=== PATIENT | male | born 1945 | race Caucasian/White ===

== ENCOUNTER 2018-04-24 11:19 | Emergency (ER) | payer MEDICARE ==
[~2018-04-24] VITALS: Ht 170.2 cm; Wt 113.4 kg
[~2018-04-24 11:19] MED LIST: ATOR80 PO; CLOB.05TC TOP; CYAN500 PO; Elocon45 GM TP; FLUO10; FLUSAL1005; Garlic Oil1000 MG PO; LOSA25 PO; LOSA50; MECL25 PO; METF500C; METF500C PO; METO25; METO50ER PO; OMEG1CAP30 PO; PRED10; Prozac20 MG; Prozac20 MG PO; ROSU10TA; Saw Palmetto450 MG PO; TIOT18; TIOT18 INH; Ventolin/Prove6.7 GM INH; WARF6 PO
[2018-04-24] MEDS ORDERED: GABA300 PO (11:46)
[2018-04-24] MEDS ORDERED: ROPI1 PO (11:46)
[2018-04-24] MEDS ORDERED: ALPR.25 PO (11:46)
[2018-04-24] MEDS ORDERED: MOMENI (11:47)
[2018-04-24] MEDS ORDERED: ELIQUIS2.5 MG PO (11:48)
[2018-04-24] MEDS ORDERED: GLIP5 PO (11:48)
[2018-04-24 12:05] LABS: BASOPHILS ABSOLUTE AUTO 0.04 K/mm3 (0.00-0.23); BASOPHILS PERCENT AUTO 0 % (0-2); EOSINOPHILS ABSOLUTE AUTO 0.18 K/mm3 (0.00-0.68); EOSINOPHILS PERCENT AUTO 2 % (0-6); Hematocrit 38.6 % (37.0-53.0); Hemoglobin 12.1 g/dL (13.5-17.5); IMMATURE GRAN ABSOLUTE AUTO 0.08 K/mm3 (0.00-0.10); IMMATURE GRAN PERCENT AUTO 1 % (0-1); LYMPHOCYTES ABSOLUTE AUTO 2.02 K/mm3 (0.84-5.20); LYMPHOCYTES PERCENT AUTO 18 % (21-46); MONOCYTES ABSOLUTE AUTO 1.12 K/mm3 (0.16-1.47); MONOCYTES PERCENT AUTO 10 % (4-13); Mean Corpuscular HGB 31.3 pg (26.0-34.0); Mean Corpuscular HGB Conc 31.3 g/dL (31.5-36.5); Mean Corpuscular Volume 100 fL (80-100); NEUTROPHILS ABSOLUTE AUTO 7.98 K/mm3 (1.96-9.15); NEUTROPHILS PERCENT AUTO 70 % (41-73); Platelet Count 279 K/mm3 (150-400); RDW Coefficient Variation 14.9 % (11.7-14.2); RDW Standard Deviation 54.6 fL (35.1-46.3); Red Blood Cell Count 3.86 M/mm3 (4.30-5.90); White Blood Cell Count 11.42 K/mm3 (4.00-11.30)
[2018-04-24 12:25] LABS: International Normalized Ratio 1.02; Prothrombin Time Results 10.8 Sec (9.7-11.5)
[2018-04-24 12:33] LABS: Alanine Aminotransfer (ALT/SGP 21 U/L (12-78); Albumin, Blood 3.2 g/dL (3.4-5.0); Albumin/Globulin Ratio 0.8 (0.8-1.8); Alk Phos 88 U/L (50-136); Anion Gap 7 mmol/L (6-16); Aspartate Aminotrans (AST/SGOT 14 U/L (12-37); Bilirubin, Total 0.4 mg/dL (0.1-1.0); Blood Urea Nitrogen 10 mg/dL (8-24); Bun/Creatinine Ratio 14.9 (12.0-20.0); CO2, Blood 27 mmol/L (21-32); Calcium, Blood 8.1 mg/dL (8.5-10.1); Chloride, Blood 107 mmol/L (98-108); Creatinine, Blood 0.67 mg/dL (0.60-1.20); Globulin, Blood 3.9 g/dL (2.2-4.0); Glomerular Filtration Rate >60 (60-); Glucose, Blood 157 mg/dL (70-99); Potassium, Blood 3.8 mmol/L (3.5-5.5); Sodium, Blood 141 mmol/L (136-145); Total Protein, Blood 7.1 g/dL (6.4-8.2); Troponin I <0.015 ng/mL (0.000-0.040)
== END 2018-04-24 14:14 | disposition home or self-care (01) ==
LOC: ER 11:19
PROVIDERS: Emergency Medicine
DX: S09.90XA Unspecified injury of head, initial encounter (principal); S39.012A Strain of muscle, fascia and tendon of lower back, initial encounter; I48.91 Unspecified atrial fibrillation; J44.9 Chronic obstructive pulmonary disease, unspecified; E11.9 Type 2 diabetes mellitus without complications; Z88.8 Allergy status to other drugs, medicaments and biological substances; Z79.899 Other long term (current) drug therapy; Z79.01 Long term (current) use of anticoagulants; Z79.84 Long term (current) use of oral hypoglycemic drugs; Z99.81 Dependence on supplemental oxygen; W18.30XA Fall on same level, unspecified, initial encounter; Y92.009 Unspecified place in unspecified non-institutional (private) residence as the place of occurrence of the external cause
CPT/HCPCS: 70450; 71045; 80053; 83880; 84484; 85025; 85610; 93005; 93010; 99285-25

== ENCOUNTER 2018-09-21 00:35 | Emergency (ER) | payer MEDICARE ==
[~2018-09-21] VITALS: Ht 170.2 cm; Wt 109.8 kg
[~2018-09-21 00:35] MED LIST changes: +ALPR.25 PO; +ELIQUIS2.5 MG PO; +GABA300 PO; +GLIP5 PO; +MOMENI; +ROPI1 PO
[2018-09-21] MEDS ORDERED: FURO20 (01:11)
[2018-09-21] MEDS ORDERED: TAMS.4ER (01:12)
[2018-09-21 01:27] LABS: BASOPHILS ABSOLUTE AUTO 0.03 K/mm3 (0.00-0.23); BASOPHILS PERCENT AUTO 0 % (0-2); EOSINOPHILS PERCENT AUTO 1 % (0-6); Hemoglobin 12.4 g/dL (13.5-17.5); IMMATURE GRAN ABSOLUTE AUTO 0.18 K/mm3 (0.00-0.10); IMMATURE GRAN PERCENT AUTO 1 % (0-1); LYMPHOCYTES ABSOLUTE AUTO 1.78 K/mm3 (0.84-5.20); LYMPHOCYTES PERCENT AUTO 11 % (21-46); MONOCYTES PERCENT AUTO 9 % (4-13); Mean Corpuscular HGB Conc 32.6 g/dL (31.5-36.5); Mean Corpuscular Volume 98 fL (80-100); Mean Platelet Volume 8.8 fL (9.1-12.4); NEUTROPHILS ABSOLUTE AUTO 13.37 K/mm3 (1.96-9.15); NEUTROPHILS PERCENT AUTO 79 % (41-73); Platelet Count 300 K/mm3 (150-400); RDW Coefficient Variation 15.1 % (11.7-14.2); RDW Standard Deviation 54.6 fL (35.1-46.3); Red Blood Cell Count 3.88 M/mm3 (4.30-5.90); White Blood Cell Count 16.96 K/mm3 (4.00-11.30)
[2018-09-21 01:48] LABS: Alanine Aminotransfer (ALT/SGP 37 U/L (12-78); Albumin, Blood 3.3 g/dL (3.4-5.0); Albumin/Globulin Ratio 0.8 (0.8-1.8); Alk Phos 86 U/L (50-136); Anion Gap 10 mmol/L (6-16); Aspartate Aminotrans (AST/SGOT 27 U/L (12-37); Bilirubin, Total 0.5 mg/dL (0.1-1.0); Blood Urea Nitrogen 12 mg/dL (8-24); Bun/Creatinine Ratio 12.4 (12.0-20.0); CO2, Blood 24 mmol/L (21-32); Calcium, Blood 8.4 mg/dL (8.5-10.1); Chloride, Blood 101 mmol/L (98-108); Creatinine, Blood 0.97 mg/dL (0.60-1.20); Globulin, Blood 3.9 g/dL (2.2-4.0); Glomerular Filtration Rate >60 (60-); Glucose, Blood 112 mg/dL (70-99); Potassium, Blood 4.2 mmol/L (3.5-5.5); Sodium, Blood 135 mmol/L (136-145); Total Protein, Blood 7.2 g/dL (6.4-8.2); Troponin I <0.015 ng/mL (0.000-0.040)
[2018-09-21 03:40] LABS: Source, Urine Clean Catch
[2018-09-21 03:45] LABS: Bilirubin, Urine Neg (Neg); Blood, Urine Neg (Neg); Glucose Qualitative, Urine Neg (Neg); Ketones, Urine Neg (Neg); Leukocyte Esterase, Urine 1+ (Neg); Nitrite, Urine Neg (Neg); Protein, Urine 2+ (Neg); Urobilinogen, Urine NORM (Normal)
[2018-09-21 04:02] LABS: Appearance, Urine Clear (Clear); Color, Urine Yellow (P-Yellow)
[2018-09-21 04:03] LABS: Bacteria Not Seen /hpf; Calcium Oxalate Crystals Mod /hpf; Red Blood Cells, Urine Not Seen /hpf (0-2); Squamous Epithelial Cells Not Seen /hpf (Few); White Blood Cells, Urine 0-2 /hpf (0-5)
[2018-09-21 04:04] LABS: Hyaline Casts 0-2 /lpf (0-2)
== END 2018-09-21 05:59 | disposition home or self-care (01) ==
LOC: ER 00:35
PROVIDERS: Emergency Medicine
DX: S20.211A Contusion of right front wall of thorax, initial encounter (principal); W19.XXXA Unspecified fall, initial encounter; R53.1 Weakness; E11.9 Type 2 diabetes mellitus without complications; J44.9 Chronic obstructive pulmonary disease, unspecified; Z88.8 Allergy status to other drugs, medicaments and biological substances; Z79.899 Other long term (current) drug therapy; Z79.84 Long term (current) use of oral hypoglycemic drugs
CPT/HCPCS: 70450; 71101; 72125; 80053; 81001; 83880; 84484; 85025; 93005; 93010; 99285-25; A9270

== ENCOUNTER 2019-04-14 12:15 | Day surgery (SDC) | payer MEDICARE ==
[~2019-04-14] VITALS: Ht 170.2 cm; Wt 108.7 kg
[~2019-04-14 12:15] MED LIST changes: +FURO20; +LANOXIN125 MCG; +METO100ER; +NITR.4SL; +STIOLTO RESPIMAT4 GM; +TAMS.4ER
--- NOTE | 2019-04-14 14:24 | NUR ---
04/14/19 1424 Nancy Martínez S IV ASSESSMENT WAS CHARTED IN OR PART INSTEAD ON IN SD.
== END 2019-04-14 14:15 | disposition home or self-care (01) ==
LOC: ORSCSDS 12:15
PROVIDERS: Internal Medicine Gastroenterology
PROC: 0DBH8ZX Excision of Cecum, Via Natural or Artificial Opening Endoscopic, Diagnostic (ICD-10-PCS; principal; 2019-04-14 14:15)
PROC: 0DBP8ZX Excision of Rectum, Via Natural or Artificial Opening Endoscopic, Diagnostic (ICD-10-PCS; principal; 2019-04-14 14:15)
DX: Z12.11 Encounter for screening for malignant neoplasm of colon (principal); Z86.010 Personal history of colon polyps; D12.0 Benign neoplasm of cecum; K62.1 Rectal polyp; K57.30 Diverticulosis of large intestine without perforation or abscess without bleeding; K64.8 Other hemorrhoids; E11.9 Type 2 diabetes mellitus without complications; I10 Essential (primary) hypertension; J44.9 Chronic obstructive pulmonary disease, unspecified; G47.33 Obstructive sleep apnea (adult) (pediatric); I48.91 Unspecified atrial fibrillation; Z79.899 Other long term (current) drug therapy; E66.01 Morbid (severe) obesity due to excess calories; Z68.37 Body mass index [BMI] 37.0-37.9, adult
CPT/HCPCS: 82947; 88305; J2405; J2704; J7120

== ENCOUNTER 2022-04-05 04:32 | Inpatient (IN) | payer MEDICARE ==
[~2022-04-05] VITALS: Ht 177.8 cm; Wt 108.6 kg
[~2022-04-05 04:32] MED LIST changes: -LANOXIN125 MCG; +LANOXIN125 MCG PO; -METO100ER; +METO100ER PO
[2022-04-05 04:46] LABS: BASOPHILS ABSOLUTE AUTO 0.08 K/mm3 (0.00-0.23); BASOPHILS PERCENT AUTO 1 % (0-2); EOSINOPHILS ABSOLUTE AUTO 0.33 K/mm3 (0.00-0.68); EOSINOPHILS PERCENT AUTO 2 % (0-6); Hematocrit 39.1 % (37.0-53.0); Hemoglobin 12.7 g/dL (13.5-17.5); IMMATURE GRAN ABSOLUTE AUTO 0.79 K/mm3 (0.00-0.10); IMMATURE GRAN PERCENT AUTO 5 % (0-1); LYMPHOCYTES ABSOLUTE AUTO 3.46 K/mm3 (0.84-5.20); LYMPHOCYTES PERCENT AUTO 21 % (21-46); MONOCYTES ABSOLUTE AUTO 1.88 K/mm3 (0.16-1.47); MONOCYTES PERCENT AUTO 12 % (4-13); Mean Corpuscular HGB 31.4 pg (26.0-34.0); Mean Corpuscular HGB Conc 32.5 g/dL (31.5-36.5); Mean Corpuscular Volume 97 fL (80-100); Mean Platelet Volume 9.2 fL (9.1-12.4); NEUTROPHILS ABSOLUTE AUTO 9.66 K/mm3 (1.96-9.15); NEUTROPHILS PERCENT AUTO 60 % (41-73); Platelet Count 328 K/mm3 (150-400); RDW Coefficient Variation 16.1 % (11.7-14.2); RDW Standard Deviation 57.8 fL (35.1-46.3); Red Blood Cell Count 4.04 M/mm3 (4.30-5.90)
[2022-04-05 04:51] LABS: PCO2 Arterial 56.1 mmHg (35-45); PO2 Arterial 266 mmHg (80-100)
[2022-04-05 04:52] LABS: pH Blood Arterial 7.27 (7.35-7.45)
[2022-04-05 05:24] LABS: Anion Gap 7 mmol/L (6-16); Blood Urea Nitrogen 21 mg/dL (8-24); Bun/Creatinine Ratio 21.4 (12.0-20.0); CO2, Blood 29 mmol/L (21-32); Calcium, Blood 8.9 mg/dL (8.5-10.1); Chloride, Blood 104 mmol/L (98-108); Creatinine, Blood 0.98 mg/dL (0.60-1.20); Digoxin (Lanoxin) 0.77 ug/mL (0.80-2.00); Glomerular Filtration Rate 79 (60-); Glucose, Blood 175 mg/dL (70-99); Potassium, Blood 4.3 mmol/L (3.5-5.5); Sodium, Blood 140 mmol/L (136-145)
[2022-04-05] MEDS ORDERED: XARELTO20 MG PO (06:34)
[2022-04-05] MEDS ORDERED: ALPR.5 PO (06:34)
[2022-04-05] MEDS ORDERED: DESV50 PO (06:35)
[2022-04-05] MEDS ORDERED: TAMS.4ER PO (06:35)
[2022-04-05] MEDS ORDERED: FURO20 PO (06:36)
[2022-04-05] MEDS ORDERED: GLIP10 PO (06:37)
[2022-04-05 09:51] LABS: Influenza A, PCR NEGATIVE (NEGATIVE); Influenza B, PCR NEGATIVE (NEGATIVE); Resp Syncytial Virus, PCR NEGATIVE (NEGATIVE); SARS-Cov-2 (COVID-19) PCR, MMC NEGATIVE (NEGATIVE)
[2022-04-05 09:56] LABS: CHOL/HDL RATIO 2.4; Cholesterol 108 mg/dL (50-200); HDL Cholesterol 45 mg/dL (>39); LDL/HDL RATIO 0.8; Low Density Lipoprotein Chol 35 mg/dL (0-110); Triglycerides 141 mg/dL (30-160); Very Low Density Lipoprot Chol 28 mg/dL (6-32)
[2022-04-05 10:06] LABS: PCO2 Arterial 48.2 mmHg (35-45); PO2 Arterial 76.3 mmHg (80-100); pH Blood Arterial 7.34 (7.35-7.45)
[2022-04-05 10:46] LABS: Source, Urine Foley catheter
[2022-04-05 11:26] LABS: Appearance, Urine Hazy (Clear); Bilirubin, Urine Neg (Neg); Blood, Urine 5+ (Neg); Color, Urine Yellow (P-Yellow); Glucose Qualitative, Urine Neg (Neg); Ketones, Urine Neg (Neg); Leukocyte Esterase, Urine Neg (Neg); Nitrite, Urine Neg (Neg); Protein, Urine 3+ (Neg); Urobilinogen, Urine NORM (Normal)
[2022-04-05 12:23] LABS: Bacteria Few /hpf; Granular Casts 0-2 /lpf (0); Red Blood Cells, Urine 25-50 /hpf (0-2); Squamous Epithelial Cells Mod /hpf (Few)
--- NOTE | 2022-04-05 15:20 | NUR ---
Echocardiogram performed.
[2022-04-06 05:47] LABS: BASOPHILS ABSOLUTE AUTO 0.04 K/mm3 (0.00-0.23); BASOPHILS PERCENT AUTO 0 % (0-2); EOSINOPHILS PERCENT AUTO 0 % (0-6); Hematocrit 34.4 % (37.0-53.0); Hemoglobin 11.5 g/dL (13.5-17.5); IMMATURE GRAN ABSOLUTE AUTO 0.17 K/mm3 (0.00-0.10); IMMATURE GRAN PERCENT AUTO 1 % (0-1); LYMPHOCYTES ABSOLUTE AUTO 0.78 K/mm3 (0.84-5.20); LYMPHOCYTES PERCENT AUTO 3 % (21-46); MONOCYTES ABSOLUTE AUTO 1.75 K/mm3 (0.16-1.47); MONOCYTES PERCENT AUTO 8 % (4-13); Mean Corpuscular HGB 31.3 pg (26.0-34.0); Mean Corpuscular HGB Conc 33.4 g/dL (31.5-36.5); Mean Corpuscular Volume 94 fL (80-100); Mean Platelet Volume 9.4 fL (9.1-12.4); NEUTROPHILS ABSOLUTE AUTO 20.57 K/mm3 (1.96-9.15); NEUTROPHILS PERCENT AUTO 88 % (41-73); Platelet Count 279 K/mm3 (150-400); RDW Standard Deviation 54.7 fL (35.1-46.3); Red Blood Cell Count 3.67 M/mm3 (4.30-5.90); White Blood Cell Count 23.31 K/mm3 (4.00-11.30)
[2022-04-06 06:08] LABS: Albumin, Blood 3.2 g/dL (3.4-5.0); Albumin/Globulin Ratio 0.7 (0.8-1.8); Bun/Creatinine Ratio 38.7 (12.0-20.0); Calcium, Blood 9.1 mg/dL (8.5-10.1); Creatinine, Blood 0.91 mg/dL (0.60-1.20); Globulin, Blood 4.5 g/dL (2.2-4.0); Potassium, Blood 4.5 mmol/L (3.5-5.5); Total Protein, Blood 7.7 g/dL (6.4-8.2)
--- NOTE | 2022-04-06 06:38 | NUR ---
Assumed care of the pt at 1900. He is alert and oriented x3, but with some mumbling speech. Pt reports right rib pain making it hard to breathe. Pt has been satting >90% on the Airvo at 60L and 40% but is very tachypneic with increased work of breathing related to pain. He was medicated multiple times for the right rib pain but has occasional moaning and twitching while sleeping. The pt continues to complain of thirst despite assistance with swabs. His blood pressure was slightly elevated this morning but improved after pain medication. He has been refusing most position changes related to pain. He has been Afib on the tele in the 110s and 120s, jumping up to the 140s with pain.
--- NOTE | 2022-04-06 10:12 | NUR ---
AM NOTE: PATIENT ALERT TO SELF, AT BEDSIDE, AND THAT HE IS AT HOSPITAL. SPEECH MUMBLED. MOANING AND GROANING. COMPLAINS OF PAIN IN "BACK". MEDICATED THIS WITH GOOD RELIEF. AT BEDSIDE AND UPDATED ON STATUS. UNABLE TO ANSWER MOST ASSESSMENT QUESTIONS. VERY DROWSY AND INTERMIT CONFUSION. LUNGS SOUNDING COARSE THROUGHOUT. ON HIGH FLOW NASAL CANNULA AT 60L AND 40% FIO2 SATING 90-94%. RR 20-24. MOUTH BREATHING. COUGH MOIST/HARSH. SPUTUM VERY THICK AND GALEAS/BROWN IN COLOR. SUCTION SET UP AT BEDSIDE AND ORAL CARE COMPLETED THIS AM. PATIENT MISSING MOST TEETH. NO SORES NOTED IN MOUTH. TELE SHOWING AFIB WITH HR 110-130'S. BP STABLE. PPP. TRACE EDEMA TO BLE. DENIES CHEST PAIN/PRESSURE. PO MEDS GIVEN THIS AM. SEE CHARTED VITALS FOR HR TREND. DENIES ABDOMINAL PAIN/NAUSEA. SPEECH THERAPY IN TO ASSESS PATIENT THIS AM. PUREE DIET IN PLACE WITH MEDS CRUSHED IN APPLESAUCE. WILL CONTINUE TO ASSESS BASED ON PATIENT MENTATION. AARON CATH IN PLACE DRAINING DARK YELLOW URINE. CATH CARE COMPLETED THIS AM. SMALL STOOL SMEAR UPON 8AM TURN. BOWEL TONES PRESENT. SKIN OVERALL FRAGILE. SKIN FOLDS RED AND IRRITATED, CLEANED AND CREAM APPLIED. COCCYX RED WITH SMALL AMOUNT OF SKIN BREAKDOWN, MEPILEX IN PLACE. SMALL SKIN TEAR TO LEFT POSTERIOR ELBOW, CLEANED AND DRESSING IN PLACE. BRUISING TO RIGHT POSTERIOR BACK/FLANK. CALL LIGHT IN REACH, ALTHOUGH PATIENT NOT USING. AT BEDSIDE. BED ALARM IN PLACE.
[2022-04-06] MEDS ORDERED: POTA10T PO (12:35)
[2022-04-06] MEDS ORDERED: STIOLTO RESPIMAT4 G1 INH (12:36)
[2022-04-06] MEDS ORDERED: ALBU90OI INH (12:37)
[2022-04-06] MEDS ORDERED: ACET325 PO (12:38)
--- NOTE | 2022-04-06 13:08 | NUR ---
PATIENT FEELING WARM. ORAL TEMP READING 98.5. PROCAL RESULT IN AT 0.20, CALL PLACED TO DR. ANGELA. UPDATED ON PROCAL. NO NEW ORDERS FOR THIS RN. STILL TRYING TO OBTAIN SPUTUM CULTURE, PATIENT NOT FOLLOWING COMMANDS WELL TO COUGH AT THIS TIME. WILL CONTINUE TO MONITOR AND UPDATE DR. ANGELA NEEDED. REMAINS AT BEDSIDE, UPDATED ON PLAN.
--- NOTE | 2022-04-06 18:04 | NUR ---
SHIFT SUMMARY: PATIENT NEURO REMAINS UNCHANGED. INTERMIT EPISODES OF BEING MORE CONFUSED AND MORE ALERT. HARD TO UNDERSTAND WITH MUMBLING. MEDICATED FOR RIGHT RIB/PAIN PAIN THROUGHOUT SHIFT. BP REMAINS STABLE. TELE SHOWING AFIB WITH HR 90-110'S. DENIES CHEST PAIN/CHEST PRESSURE. SEE SPEECH ORDERS. DUE TO PATIENT MENTATION UNABLE TO EAT ANY MEALS TODAY. TAKING SOME BITES OF APPLESAUCE AND DRINKING WATER WHEN ALERT. ORAL CARE Q4. AARON CATH DRAINING DARK YELLOW URINE WITH SLIGHT BLOOD TINGED. TOTAL OUTPUT 525ML THIS SHIFT. FAMILY AT BEDSIDE. Q6 BLOOD SUGARS WITH INSULIN COVERAGE. Q2 TURNING ALTHOUGH VERY DIFFICULT TO GET PATIENT COMFORTABLE. REMAINS ON AIRVO AT 60L AND 40% FIO2 SATING 90-94%. UNABLE TO OBTAIN SPUTUM SAMPLE THIS SHIFT, ORDERS REMAIN IN PLACE. BED ALARM ON.
[2022-04-06 23:48] LABS: Base Excess Venous 3.4 mmol/L; PCO2 Venous 42.5 mmHg (38-42); pH Blood Venous 7.42 (7.34-7.37)
[2022-04-07 02:10] LABS: Source, Urine Foley catheter
[2022-04-07 02:13] LABS: Bilirubin, Urine Neg (Neg); Blood, Urine 4+ (Neg); Glucose Qualitative, Urine Neg (Neg); Ketones, Urine Neg (Neg); Leukocyte Esterase, Urine 3+ (Neg); Nitrite, Urine Pos (Neg); Protein, Urine 3+ (Neg); Urobilinogen, Urine NORM (Normal)
[2022-04-07 02:16] LABS: BASOPHILS ABSOLUTE AUTO 0.05 K/mm3 (0.00-0.23); BASOPHILS PERCENT AUTO 0 % (0-2); EOSINOPHILS PERCENT AUTO 0 % (0-6); Hematocrit 33.2 % (37.0-53.0); Hemoglobin 10.8 g/dL (13.5-17.5); IMMATURE GRAN ABSOLUTE AUTO 0.26 K/mm3 (0.00-0.10); IMMATURE GRAN PERCENT AUTO 1 % (0-1); LYMPHOCYTES ABSOLUTE AUTO 0.53 K/mm3 (0.84-5.20); LYMPHOCYTES PERCENT AUTO 2 % (21-46); MONOCYTES ABSOLUTE AUTO 2.06 K/mm3 (0.16-1.47); MONOCYTES PERCENT AUTO 8 % (4-13); Mean Corpuscular HGB 31.1 pg (26.0-34.0); Mean Corpuscular HGB Conc 32.5 g/dL (31.5-36.5); Mean Corpuscular Volume 96 fL (80-100); Mean Platelet Volume 9.7 fL (9.1-12.4); NEUTROPHILS ABSOLUTE AUTO 23.84 K/mm3 (1.96-9.15); NEUTROPHILS PERCENT AUTO 89 % (41-73); NRBC ABSOLUTE 0.02 K/mm3 (0.00-0.02); NRBC Auto 0.1 /100 WBC (0.0-0.2); Platelet Count 266 K/mm3 (150-400); RDW Coefficient Variation 16.2 % (11.7-14.2); RDW Standard Deviation 56.9 fL (35.1-46.3); Red Blood Cell Count 3.47 M/mm3 (4.30-5.90); White Blood Cell Count 26.74 K/mm3 (4.00-11.30)
[2022-04-07 02:19] LABS: Appearance, Urine Cloudy (Clear); Color, Urine Amber (P-Yellow)
[2022-04-07 02:21] LABS: Bacteria Mod /hpf; Red Blood Cells, Urine TNTC /hpf (0-2); Squamous Epithelial Cells Rare /hpf (Few)
[2022-04-07 02:30] LABS: Albumin, Blood 3.2 g/dL (3.4-5.0); Anion Gap 8 mmol/L (6-16); Blood Urea Nitrogen 46 mg/dL (8-24); Bun/Creatinine Ratio 45.1 (12.0-20.0); CO2, Blood 26 mmol/L (21-32); Calcium, Blood 9.3 mg/dL (8.5-10.1); Chloride, Blood 105 mmol/L (98-108); Creatinine, Blood 1.02 mg/dL (0.60-1.20); Glomerular Filtration Rate 76 (60-); Glucose, Blood 205 mg/dL (70-99); Phosphorus, Blood 4.1 mg/dL (2.5-4.9); Potassium, Blood 4.7 mmol/L (3.5-5.5); Sodium, Blood 139 mmol/L (136-145)
--- NOTE | 2022-04-07 05:45 | NUR ---
ARRIVAL TO ICU PT BROUGHT TO ICU AT THIS TIME. PT IS ABLE TO STATE NAME AND . OTHERWISE HE DOES NOT FOLLOW ANY COMMANDS, RESTLESS AND CONTINUOUSLY MOVING AROUND BED, PUSHING STAFF AWAY. BILATERAL SOFT WRIST RESTRAINTS IN PLACE. PT PLACED ON BIPAP 10/6 FIO2 40%. PRECEDEX STARTED AND TITRATED TO 0.5MCG/KG/HR. PT REMAINS RESTLESS AND MOANING/CALLING OUT. PT REORIENTED, PT C/O BACK AND NECK PAIN, CONTINUES TO BE RESTLESS. HR 130S-140S. BP STABLE WITH MAP >65. EKG DONE AND SHOWS SINUS TACH WITH 1ST DEGREE AV BLOCK AND LBBB. AARON PATENT AND DRAINING DARK YELLOW URINE TO GRAVITY. LARGE BRUISE ON R HIP. BED IN LOW POSITION. WILL REPORT TO ONCOMING RN.
--- NOTE | 2022-04-07 06:15 | NUR ---
ZONING ENGINEER SUMMARY ASSUMED CARE OF THE PT AT 1900. HE IS ALERT AND ORIENTED TO SELF AND SURROUNDINGS. PT CONTINUED TO HAVE CONFUSION AND BECAME AGITATED WITH STAFF AND HIS NPO STATUS HE CONTINUES TO REQUEST WATER. PT HAD BEEN ATTEMPTING TO GET OUT OF BED WITHOUT ASSISTANCE AND CONTINUED TO YELL INTO THE HALLWAY FOR THE NURSE BUT REPORTS FEELING UNABLE TO BREATHE. SATURATION REMAINED >90% WHEN ON THE AIRVO AT 60L AND 35% - HE BEGAN TO GET AGITATED AND PULLED OFF THE AIRVO MASK. ATTEMPTED TO CALM PT WITH 1MG IV ATIVAN BUT PT CONTINUED TO MOAN AND TWITCH. HE CONTINUES TO BE REDIRECTABLE BUT ONLY FOR A SHORT PERIOD BEFORE ATTEMPTING TO PULL OFF THE AIRVO MASK OR GET OUT OF BED. PT WITH DESATURATIONS INTO THE MID 70S WHEN NOT ON THE MASK. HE COULD NOT TOLERATE THE BIPAP MASK AND CONTINUED TO REMOVE IT. SPOKE WITH DR JOSEPH WHO ORDERED LABWORK AND A REPEAT CHEST XRAY WHICH SHOWS POSSIBLE RLL PNA VS ATELECTASIS AND HIS URINALYSIS WAS POSITIVE FOR LEUKOCYTES, NITRITE, AND BLOOD. PT SUGAR REMAINS IN THE 200S DUE TO STEROIDS AND GIVEN 2 U SHORT ACTING Q6H. ATTEMPTED RESTRAINTS ON THE PT BUT HE BEGAN PULLING ON THEM AND WAS SHORTLY TRANSFERRED TO ICU FOR PRECEDEX PER HOSPITALIST AND RESIDENT RECOMMENDATION.
--- NOTE | 2022-04-07 06:23 | NUR ---
CONTACTED PT'S SAMSON REGARDING PT TRANSFER TO ICU. HOME NUMBER: [phone] CELL NUMBER: [phone]
--- NOTE | 2022-04-07 12:47 | NUR ---
REASSESSMENT PT HAS BEEN ON THE BIPAP THROUGHOUT THE MORNING. PRECEDEX HAD TO BE TITRATED UP TO 1.4MCG/KG/HR TO HELP WITH HIS ANXIETY/AGITATION. DR. ANGELA GAVE PERMISSION FOR THE INCREASE IN PRECEDEX WELL FOR SOME PAIN MEDICATION PT TENSED UP WHEN HIS R SIDE WAS JUST LIGHTLY TOUCHED. PT NOT FOLLOWING COMMANDS, ONLY MOANING. HE FREQUENTLY WORKS HIS LOWER JAW OUT OF THE BIPAP MASK. AT NOON, BIPAP TAKEN OFF FOR ORAL CARE AND PT PLACED ON HIGH FLOW NC. PT MAINTAINED SPO2 IN THE HIGH 90S ON HIGH FLOW SO AFTER DISCUSSING CASE WITH RT, PT LEFT ON HIGH FLOW FOR A LONGER BREAK. PT'S NOSE IS STARTING TO GET PINK, WILL CONTINUE TO TRY AND REPOSITION MASK WHEN PT GOES BACK ON IT TO HELP PREVENT BREAKDOWN. REMAINS AFIB, RATE IN THE 80S WHEN RELAXED, UP TO 120S WHEN AGITATED. NOT SAFE FOR PO DUE TO MENTATION. PT'S AND SON HAVE BEEN AT THE BEDSIDE THROUGHOUT THE MORNING AND WERE UPDATED BY NURSING STAFF.
[2022-04-07 14:56] LABS: Base Excess Venous -2.3 mmol/L; Bicarbonate Venous 22.6 mmol/L (24.0-30.0); PCO2 Venous 43.2 mmHg (38-42); pH Blood Venous 7.34 (7.34-7.37)
--- NOTE | 2022-04-07 15:05 | NUR ---
HYPOTENSION PT HAS BEEN HYPOTENSIVE THIS AFTERNOON WITH SBP IN THE 70S. PT ALSO HASN'T BEEN GETTING AGITATED OR FIGHTING AGAINST TURNS. HR REMAINS 1 TEENS. PLACED PT BACK ON BIPAP AND NOTIFIED DR. ANGELA. RECEIVED ORDERS FOR VBG AND 500ML LR BOLUS, THEN REPEAT 500ML IF PT STILL HYPOTENSIVE. BOLUS INFUSING CURRENTLY. PT'S AT THE BEDSIDE AND WAS UPDATED.
--- NOTE | 2022-04-07 16:34 | NUR ---
PT REMAINS HYPOTENSIVE. DR. ANGELA NOTIFIED AND ORDERS RECEIVED TO START LOW DOSE LEVOPHED PERIPHERALLY. DR. ANGELA CAME BY AND EVALUATED PT. PT'S AT BEDSIDE AND WAS UPDATED BY .
--- NOTE | 2022-04-07 17:37 | NUR ---
SHIFT SUMMARY PT WORE THE BIPAP FOR MOST OF THE DAY. HE TOLERATED BEING ON THE HIGH FLOW FOR ABOUT 2 HOURS TODAY BEFORE HE HAD A MENTATION CHANGE AND DROP IN BP THAT PROMPTED A RETURN TO THE MASK UNTIL HE STABILIZED. HE RECEIVED 1L LR AND IS RECEIVING ANOTHER 1LNS PER DR. ANGELA. LOW DOSE LEVOPHED INFUSING WELL. REMAINS IN AFIB WITH RATE IN THE 120-130S CURRENTLY. PT HAD 500ML OF URINE OUTPUT OF NOON TODAY, BUT NONE SINCE. PT'S HAS BEEN AT THE BEDSIDE AND WAS UPDATED BY DR. ANGELA AND NURSING STAFF THROUGHOUT THE AFTERNOON AND EVENING.
--- NOTE | 2022-04-07 19:15 | NUR ---
ASSUMPTION OF CARE PT ON BIPAP 10/6 FIO2 40%. SPO2 >95%. PT HAS ODD BREATHING PATTERN WITH EXCESSIVE ABDOMINAL MOVEMENT. PT MOANING, UNABLE TO ANSWER QUESTIONS OR FOLLOW COMMANDS. PT APPEARS PALE. HYPOTENSIVE WITH SBP 80S, MAP 50S-60S. LEVOPHED STARTED AT 2MCG/MIN. HOSPITALIST NOTIFIED AND ON WAY TO EVALUATE PT.
--- NOTE | 2022-04-07 19:30 | NUR ---
INTUBATION/CODE BLUE MULTIPLE RNS, RT, AND DR HOANG AT BEDSIDE. 1929: PT RR DECREASING, AGONAL BREATHING. PLAN TO INTUBATE. 1946: ETOMIDATE AND ROCURONIUM ADMNISTERED 1947: PHYSICIAN AND RT AT HEAD OF BED. PT INTUBATED WITH 8.0 ETT, 24CM AT GUMS. POSITIVE COLOR CHANGE, BILATERAL LUNG SOUNDS. OGT PLACED, AUSCULTATED AND GASTRIC CONTENT RETURN. 1999: PT IN PEA, CPR STARTED. MONITOR SHOWS PREVIOUS RHYTHM SINUS TACH WITH 1ST DEGREE AV BLOCK AND LBBB WITH RATE IN 120S-140S. 2001: EPI ADMINISTERED 2003: SVT ON MONITOR. EPI ADMINISTERED. 2006: MAGNESIUM ADMINISTERED. LEVOPHED TITRATED TO 20MCG/MIN. 2007: VTACH ON MONITOR. DEFIB 120J. ASYSTOLE, RESTART CPR. 2008: EPI ADMINISTERED 2009: PULSE CHECK, ASYSTOLE, CPR RESTARTED. BICARB ADMINISTERED. 2012: CALCIUM CHLORIDE ADMINISTERED. EPI GTT STARTED AT 10MCG/MIN. EPI PUSH ADMINISTERED. 2016: PULSE CHECK, ASYSTOLE. CPR RESTARTED. 2019: TIME OF SON PRESENT AND AWARE OF SITUATION. PT'S NOTIFIED AND ON WAY TO HOSPITAL. 2030: SPOUSE AND SON AT BEDSIDE. GOLD [place] RING GIVEN TO SPOUSE. FAMILY DECIDING ON HOME.
== END 2022-04-07 20:19 | DRG 208 ==
LOC: ER 04:32 → PCU 07:04 → ICUE 07:04 → PCU 08:36 → ICUE 04-07 05:54
PROVIDERS: Emergency Medicine; Family Medicine; Student in an Organized Health Care Education/Training Program; ADMIT Family Medicine
PROC: 5A09357 Assistance with Respiratory Ventilation, Less than 24 Consecutive Hours, Continuous Positive Airway Pressure (ICD-10-PCS; 2022-04-05)
PROC: 5A0935A Assistance with Respiratory Ventilation, Less than 24 Consecutive Hours, High Flow/Velocity Cannula (ICD-10-PCS; 2022-04-05)
PROC: 5A12012 Performance of Cardiac Output, Single, Manual (ICD-10-PCS; principal; 2022-04-07)
PROC: 3E033XZ Introduction of Vasopressor into Peripheral Vein, Percutaneous Approach (ICD-10-PCS; 2022-04-07)
PROC: 5A1935Z Respiratory Ventilation, Less than 24 Consecutive Hours (ICD-10-PCS; 2022-04-07)
PROC: 0BH17EZ Insertion of Endotracheal Airway into Trachea, Via Natural or Artificial Opening (ICD-10-PCS; 2022-04-07)
DX: J96.21 Acute and chronic respiratory failure with hypoxia (principal); G92.8 Other toxic encephalopathy; T79.4XXA Traumatic shock, initial encounter; I47.20 Ventricular tachycardia, unspecified; J44.1 Chronic obstructive pulmonary disease with (acute) exacerbation; J96.22 Acute and chronic respiratory failure with hypercapnia; I46.2 Cardiac arrest due to underlying cardiac condition; I48.91 Unspecified atrial fibrillation; K76.0 Fatty (change of) liver, not elsewhere classified; I10 Essential (primary) hypertension; N40.0 Benign prostatic hyperplasia without lower urinary tract symptoms; E78.5 Hyperlipidemia, unspecified; F32.A Depression, unspecified; D63.8 Anemia in other chronic diseases classified elsewhere; I65.21 Occlusion and stenosis of right carotid artery; E11.51 Type 2 diabetes mellitus with diabetic peripheral angiopathy without gangrene; K80.20 Calculus of gallbladder without cholecystitis without obstruction; Z20.822 Contact with and (suspected) exposure to COVID-19; Z86.010 Personal history of colon polyps; Z87.19 Personal history of other diseases of the digestive system; Z86.73 Personal history of transient ischemic attack (TIA), and cerebral infarction without residual deficits; Z79.01 Long term (current) use of anticoagulants; Z88.8 Allergy status to other drugs, medicaments and biological substances; Z79.899 Other long term (current) drug therapy; Z79.02 Long term (current) use of antithrombotics/antiplatelets; Z79.84 Long term (current) use of oral hypoglycemic drugs; Z98.890 Other specified postprocedural states; W06.XXXA Fall from bed, initial encounter; Z87.891 Personal history of nicotine dependence
CPT/HCPCS: 0241U; 31500; 36415; 36600; 51702; 70450; 70496; 70498; 71045; 72125; 73502; 80048; 80053; 80061; 80069; 80162; 81001; 82803; 82947; 83605; 83880; 84145; 84484; 85025; 87040; 87086; 92610; 92950; 93005; 93010; 93306; 94002; 94640; 94660; 94664; 94762; 96372-59; 99291-25; A9270; C1751; G0390; J0171; J1940; J2060; J2250; J2310; J2543; J2930; J3010; J3475; J7030; J7050; J7060; J7120; Q9967